=== PATIENT | female | born 1950 | race American Indian/Alaskan Native ===

== ENCOUNTER 2021-12-17 12:48 | Outpatient (CLI) | payer MEDICARE, OTHER ==
--- NOTE | 2021-12-17 17:34 | Ultrasound Report ---
US soft tissue head and neck INDICATION / CLINICAL INFORMATION: PALPABLE MASS. COMPARISON: None available. FINDINGS: Limited grayscale and color Doppler imaging of the left neck area of concern. There is a tiny lymph node in the area of concern measuring 2 mm in short axis dimension with normal reniform morphology and fatty hilum. IMPRESSION: 1. Tiny lymph node in the left neck area of concern without suspicious features. Scribed by: Dawna Kingsley RDMS, MACK, AHSAN Scribed: 12/17/2021 1:36 PM I have reviewed the images, agree with this report, and edited this report as needed. Signer Name: Tristen Gutierrez MD Signed: 12/17/2021 5:30 PM Workstation Name: [id number]
== END 2021-12-17 12:49 | disposition home or self-care (01) ==
LOC: US 12:48
PROVIDERS: ATTEND Internal Medicine
DX: R22.1 Localized swelling, mass and lump, neck (principal)
CPT/HCPCS: 76536